=== PATIENT | male | born 1995 | race Caucasian/White ===

== ENCOUNTER 2020-01-24 17:29 | Emergency (ER) | payer BC, SELFPAY ==
--- NOTE | ~2020-01-24 | XR_ITS ---
EXAMINATION: XR hand RT min 3V EXAM DATE: 01/24/2020 18:02 INDICATION: Initial encounter following injury, with pain of the right hand. TECHNIQUE: Right hand frontal, lateral and oblique projections obtained and reviewed. There is no pr ior study for comparison. FINDINGS: Acute closed post traumatic fracture at the neck of the right 5th metacarpal bone with mild volar angulation. There is overlying soft tissue swelling. No other findings. IMPRESSION: Right boxer's fracture. Reviewed, dictated and finalized at location A. IMPRESSION: Right boxer's fracture.
[2020-01-24 17:33] VITALS: BP 138/83; PULSE 81; RESP 18; TEMP 36.3; O2SAT 99
--- NOTE | 2020-01-24 17:49 | ED.GENADULT ---
HPI - General Adult General Chief complaint: Extremity Injury, Upper Stated complaint: boxers fracture Time Seen by Provider: 01/24/20 17:35 Source: patient Mode of arrival: ambulatory Limitations: no limitations History of Present Illness HPI narrative: Patient is an 74-year-old male who presents with pain swelling and tenderness over the right hand involving the fourth and fifth MCPs and carpals distally notes that he punched an object 2 weeks ago has continued to have bruising swelling and pain concern for fracture noted patient denies any other complaints at this time. Patient has not been seen for this complaint Related Data Allergies Allergy/AdvReac Type Severity Reaction Status Date / Time No Known Allergies Allergy Verified 01/24/20 17:32 Review of Systems Review of Systems: All systems reviewed & are unremarkable except as noted in HPI and below PMFSH Social History Social History Gender identity (if verbalized by the patient): Male Exam Narrative: Exam Narrative: GENERAL: Well-appearing, well-nourished, and in no acute distress. HEAD: Normocephalic, atraumatic. EYES: PERRLA and EOMI. ENT: Nares clear, no rhinorrhea or epistaxis. Mucous membranes moist. EXTREMITIES: Bruising swelling and tenderness over the fourth and fifth carpals and metacarpals of the right hand SKIN: Warm, dry, no rash. NEURO: No focal deficits. Alert and oriented x3. Neurovascularly intact. Capillary refill less than 2 seconds PSYCH: Normal mood and affect. Course Course Emergency Course: Patient in the room in no distress aware of case findings treatment plan and diagnosis Vital Signs Vital signs: Vital Signs Temperature 97.3 F L 01/24/20 17:33 Pulse Rate 81 01/24/20 17:33 Respiratory Rate 18 01/24/20 17:33 Blood Pressure 138/83 01/24/20 17:33 Pulse Oximetry 99 01/24/20 17:33 Temperature 97.3 F L 01/24/20 17:33 Pulse Rate 81 01/24/20 17:33 Respiratory Rate 18 01/24/20 17:33 Blood Pressure 138/83 01/24/20 17:33 Pulse Oximetry 99 01/24/20 17:33 Medical Decision Making MDM Narrative Medical decision making narrative: Patients injury or pain is consistent with musculoskeletal etiology. No signs of neurological or vascular compromise on exam. Compartments and tisues are soft without signs of compartment syndrome. Pain is felt appropriate for further evaluation on an outpatient basis. Patient was set up with hand surgery at [facility] patient was placed in ulnar gutter splint Vital Signs Vital Signs: Vital Signs Temperature 97.3 F L 01/24/20 17:33 Pulse Rate 81 01/24/20 17:33 Respiratory Rate 18 01/24/20 17:33 Blood Pressure 138/83 01/24/20 17:33 Pulse Oximetry 99 01/24/20 17:33 Temperature 97.3 F L 01/24/20 17:33 Pulse Rate 81 01/24/20 17:33 Respiratory Rate 18 01/24/20 17:33 Blood Pressure 138/83 01/24/20 17:33 Pulse Oximetry 99 01/24/20 17:33 Imaging Data Radiologist's impression: ITS Impressions Hand X-Ray 01/24/20 18:07 IMPRESSION: Right boxer's fracture. Discharge Plan Discharge Clinical Impression: Fracture of hand Patient Disposition: Home, Self-Care Condition: Stable Instructions: Antibiotic Form, Hand Fracture (ED) Additional Instructions: Follow-up with hand surgery at [facility] call [phone] to set up for appointment do so tomorrow. It is important that you tell them that you were evaluated in the emergency department and need acute follow-up for your injury Return if symptoms worsen or concerns or any increase in redness swelling pain fever over 100.5 or any loss of feeling or function in the extremity Wear splint with rest and intermittent ice and elevation Follow patient education sheets Only take medications as directed Prescriptions: New ibuprofen [IBU] 600 mg tablet 600 mg PO QID PRN (Reas
--- NOTE | 2020-01-24 18:47 | PC.NURSE ---
BRAYAN Pike spoke with access line, follow up number was given
== END 2020-01-24 19:37 | disposition home or self-care (01) ==
PROVIDERS: Emergency Provider Emergency Medicine
DX: S62.336A Displaced fracture of neck of fifth metacarpal bone, right hand, initial encounter for closed fracture (principal); W22.8XXA Striking against or struck by other objects, initial encounter
CPT/HCPCS: 29125; 73130; 99284; A4565

== ENCOUNTER → 2021-07-23 12:17 | Outpatient (CLI) | payer OTHER, SELFPAY ==
--- NOTE | ~2021-07-23 | XR_ITS ---
EXAMINATION: XR ankle LT min 3V DATE: 07/23/2021 12:43 INDICATION: Left ankle pain and swelling. TECHNIQUE: 4 views of left ankle were obtained. COMPARISON: None. FINDINGS: There is a nondisplaced transverse fracture of the distal tip of fibula, 2.1 cm distal to t he level of the tibial plafond. Joint spaces are normal. There is an enthesophyte at plantar aspect o f calcaneal tuberosity. Ankle soft tissue swelling is noted. IMPRESSION: 1. Nondisplaced transverse fracture of the distal tip of fibula. Reviewed, dictated and finalized at location A. [employer]ANCE ADVISOR
== END ==
PROVIDERS: PCP Emergency Medicine; Visit Provider Emergency Medicine
DX: S82.402A Unspecified fracture of shaft of left fibula, initial encounter for closed fracture (principal)
CPT/HCPCS: 73610

== ENCOUNTER → 2021-12-06 17:12 | Outpatient (CLI) | payer BC, SELFPAY ==
--- NOTE | ~2021-12-06 | XR_ITS ---
XR ankle LT min 3V DATE: 12/06/2021 17:28 INDICATION: Left ankle pain TECHNIQUE: 4 views COMPARISON: 07/23/2021 left ankle FINDINGS: No fracture or dislocation of the ankle or disruption of the ankle mortise. No periosteal r eaction or bone destruction. Plantar calcaneal enthesopathy. IMPRESSION: Plantar calcaneal enthesopathy Reviewed, dictated and finalized at location A.
== END ==
PROVIDERS: PCP Emergency Medicine; Visit Provider Emergency Medicine
DX: M77.32 Calcaneal spur, left foot (principal)
CPT/HCPCS: 73610